=== PATIENT | female | born 1945 | race Caucasian/White ===

== ENCOUNTER 2023-03-01 21:46 | Observation (INO) | payer MEDICARE ==
[2023-03-01 22:00] LABS: Glucose,Whole Blood 219 mg/dL (70-110)
[2023-03-01] MEDS ORDERED: LABETALOL 5 MG/ML VIAL MDV IVP STA (22:32)
[2023-03-01 23:00] LABS: Basophils # (A) 0.1 k/uL (0-0.2); Basophils % (A) 1 %; Eosinophils # (A) 0.1 k/uL (0-0.7); Eosinophils % (A) 1 %; HCT 37.9 % (34.0-46.0); HGB 12.7 gm/dL (11.4-16.0); Lymphocytes # (A) 2.7 k/uL (1.0-4.8); Lymphocytes % (A) 24 %; MCH 29.6 pg (25.0-35.0); MCHC 33.6 g/dL (31.0-37.0); MCV 88.2 fL (80.0-100.0); Mean Platelet Volume 8.1; Monocytes # (A) 0.6 k/uL (0-1.0); Monocytes % (A) 5 %; Neutrophils # (A) 7.9 k/uL (1.3-7.7); Neutrophils % (A) 69 %; Platelet Count 236 k/uL (150-450); RBC 4.29 m/uL (3.80-5.40); WBC 11.5 k/uL (3.8-10.6)
[2023-03-01 23:03] LABS: ALT 23 U/L (4-34); AST 27 U/L (14-36); African American GFR (CKD) 43 (>60 ml/min/1.73 sqM); Albumin 4.1 g/dL (3.5-5.0); Alkaline Phosphatase 55 U/L (38-126); Anion Gap 9 mmol/L; Blood Urea Nitrogen 26 mg/dL (7-17); Calcium 9.1 mg/dL (8.4-10.2); Carbon Dioxide 23 mmol/L (22-30); Chloride 106 mmol/L (98-107); Glucose 225 mg/dL (74-99); Lipase 151 U/L (23-300); Magnesium 1.7 mg/dL (1.6-2.3); Non-African American GFR(CKD) 37 (>60 ml/min/1.73 sqM); Potassium 4.1 mmol/L (3.5-5.1); Sodium 138 mmol/L (137-145); Total Bilirubin 0.8 mg/dL (0.2-1.3); Total Protein 6.9 g/dL (6.3-8.2)
--- NOTE | 2023-03-01 23:45 | ED ---
General Adult HPI - General Chief complaint: Recheck/Abnormal Lab/Rx Stated complaint: Syncope Time Seen by Provider: 03/01/23 21:48 Source: EMS Mode of arrival: EMS - History of Present Illness Initial comments: This is a 77-year-old female with a past medical history including hypertension and hyperlipidemia presents emergency Department as a transfer patient from [place] emergency department. The patient earlier today suffered a syncopal episode and had a headache. The patient was seen in the emergency department and was found to have hypertension and the setting of syncope was transferred here for further evaluation by cardiology. On arrival, the patient stated that she had a continued headache and was hypertensive. The patient did not receive any blood pressure medication at the previous hospital. The patient was otherwise resting in bed comfortably without any acute distress. The patient denied any shortness of breath, chest pain as well as any lightheadedness or dizziness. - Related Data Home Medications Medication Instructions Recorded Confirmed Enalapril Maleate [Vasotec] 10 mg PO BID 04/12/15 04/15/15 Metoprolol Tartrate [Lopressor] 25 mg PO BID 04/12/15 04/15/15 Pravastatin Sodium [Pravachol] 20 mg PO HS 04/12/15 04/15/15 Ascorbic Acid [Vitamin C] 500 mg PO DAILY 03/01/23 03/01/23 Calcium Carbonate [Calcium] 600 mg PO DAILY 03/01/23 03/01/23 Cholecalciferol [Vitamin D3 (25 50 mcg PO DAILY 03/01/23 03/01/23 Mcg = 1000 Iu)] Ferrous Sulfate [Feosol] 325 mg PO DAILY 03/01/23 03/01/23 Furosemide [Lasix] 20 mg PO DAILY 03/01/23 03/01/23 Insulin NPH Hum/Reg Insulin Hm 15 units SQ AC-SUPPER 03/01/23 03/01/23 [Novolin 70-30 Flexpen] Insulin NPH Hum/Reg Insulin Hm 18 units SQ AC-BRKFST 03/01/23 03/01/23 [Novolin 70-30 Flexpen] Insulin NPH Hum/Reg Insulin Hm 23 units SQ AC-LUNCH@1200 03/01/23 03/01/23 [Novolin 70-30 Flexpen] Isosorbide Mononitrate ER [Imdur] 30 mg PO HS 03/01/23 03/01/23 Levothyroxine Sodium [Synthroid] 50 mcg PO DAILY 03/01/23 03/01/23 Previous Rx's Medication Instructions Recorded Nitroglycerin Sl Tabs [Nitrostat] 0.4 mg SUBLINGUAL Q5M PRN #25 tab 04/16/15 Allergies Allergy/AdvReac Type Severity Reaction Status Date / Time Penicillins Allergy Rash/Hives Verified 03/01/23 22:34 Review of Systems ROS Statement: Those systems with pertinent positive or pertinent negative responses have been documented in the HPI. ROS Other: All systems not noted in ROS Statement are negative. Past Medical History Past Medical History: Diabetes Mellitus, Hyperlipidemia, Hypertension Additional Past Medical History / Comment(s): see Dr Monterroso H&P History of Any Multi-Drug Resistant Organisms: None Reported Past Surgical History: Appendectomy, Bladder Surgery, Section, Cho lecystectomy, Heart Catheterization, Orthopedic Surgery Additional Past Surgical History / Comment(s): little finger left hand surgery, surgery on great toe left foot, Past Anesthesia/Blood Transfusion Reactions: Motion Sickness Past Psychological History: No Psychological Hx Reported Smoking Status: Never smoker Past Alcohol Use History: None Reported Past Drug Use History: None Reported - Past Family History Mother Family Medical History: Cancer General Exam Limitations: no limitations General appearance: alert, in no apparent distress Head exam: Present: atraumatic, normocephalic, normal inspection Eye exam: Present: normal appearance, PERRL Pupils: Present: normal accommodation ENT exam: Present: normal exam, normal oropharynx, mucous membranes moist Neck exam: Present: normal inspection, full ROM Respiratory exam: Present: normal lung sounds bilaterally. Absent: respiratory distress, wheezes Cardiovascular Exam: Present: regular rate, normal rhythm, normal heart sounds GI/Abdominal exam: Present: soft, normal bowel sounds Extremities exam: Present: normal inspection, full ROM Back exam: Present: normal inspection, full ROM Neurological exam: Present: alert, oriented X3, CN II-XII intact Psychiatric exam: Present: normal affect, normal mood Skin exam: Present: warm, dry Course Vital Signs 03/01/23 03/01/23 03/01/23 21:52 22:00 22:30 Temperature 98.0 F Pulse Rate 81 81 68 Respiratory 18 18 18 Rate Blood Pressure 211/85 233/80 202/80 O2 Sat by Pulse 97 97 98 Oximetry 03/01/23 03/01/23 23:00 23:30 Temperature Pulse Rate 67 70 Respiratory 18 18 Rate Blood Pressure 192/80 188/77 O2 Sat by Pulse 98 98 Oximetry Medical Decision Making - Medical Decision Making Was pt. sent in by a medical professional or institution (SIMÓN Horan, MENTAL RETARDATION NURSE, urgent care, hospital, or fpc...) When possible be specific @ -Yes, patient transferred from [place] emergency department. Did you speak to anyone other than the patient for history (EMS, parent, family, police, friend...)? What history was obtained from this source @ -No Did you review nursing and triage notes (agree or disagree)? Why? @ -I reviewed and agree with nursing and triage notes Were old charts reviewed (outside hosp., previous admission, EMS record, old EKG, old radiological studies, urgent care reports/EKG's, fpc records)? Report findings @ -Yes, the outside emergency department notes and [facility] reviewed Differential Diagnosis (chest pain, altered mental status, abdominal pain women, abdominal pain men, vaginal bleeding, weakness, fever, dyspnea, syncope, headache, dizziness, GI bleed, back pain, seizure, CVA, palpatations, mental health)? @ -Hypertensive urgency, hypertensive emergency, headache, NOS, syncope EKG interpreted by me (3pts min.). @ -EKG was performed at the outside facility X-rays interpreted by me (1pt min.). @ -None done CT interpreted by me (1pt min.). @ -None done U/S interpreted by me (1pt. min.). @ -None done What testing was considered but not performed or refused? (CT, X-rays, U/S, labs)? Why? @ -None What meds were considered but not given or refused? Why? @ -None Did you discuss the management of the patient with other professionals (professionals i.e. SIMÓN Horan, MENTAL RETARDATION NURSE, lab, RT, psych nurse, psychosocial rehabilitation counselor, ep technologist, teacher, electorate officer, case mgr)? Give summary @ -Yes, admitting physician was contacted regarding patient admission. Was smoking cessation discussed for >3mins.? @ -No Was critical care preformed (if so, how long)? @ -No Were there social determinants of health that impacted care today? How? (Homelessness, low income, unemployed, alcoholism, drug addiction, transportation, low edu. Level, literacy, decrease access to med. care, alf, rehab)? @ -No Was there de-escalation of care discussed even if they declined (Discuss DNR or withdrawal of care, Hospice)? DNR status @ -No What co-morbidities impacted this encounter? (DM, HTN, Smoking, COPD, CAD, Cancer, CVA, ARF, Chemo, Hep., AIDS, mental health diagnosis, sleep apnea, morbid obesity)? @ -Hypertension, hyperlipidemia Was patient admitted / discharged? Hospital course, mention meds given and route, prescriptions, significant lab abnormalities, going to OR and other pertinent info. @ -The patient was seen and evaluated emergency department. Physical exam, the patient was resting in bed without any acute distress. The signs admission were significant for significant hypertension. All laboratory workup and imaging was performed at outside facility however repeat laboratory workup for baseline testing was performed here. The patient received 10 mg of labetalol and did have decrease in her blood pressure. The patient's blood pressure decreased approximately 25% and the patient on reevaluation had improvement of her headache. Due to this, the patient was likely suffering from a hypertensive urgency in the setting of previous syncope. The patient will be placed in observation to be evaluated by cardiology. The patient was agreeable to this and all of her questions were answered. The patient was placed in observation in stable condition. Undiagnosed new problem with uncertain prognosis? @ -No Drug Therapy requiring intensive monitoring for toxicity (Heparin, Nitro, Insulin, Cardizem)? @ -No Were any procedures done? @ -No Diagnosis/symptom? @ -Hypertensive urgency, syncope Acute, or Chronic, or Acute on Chronic? @ -Acute Uncomplicated (without systemic symptoms) or Complicated (systemic symptoms)? @ -Complicated Side effects of treatment? @ -No Exacerbation, Progression, or Severe Exacerbation? @ -No Poses a threat to life or bodily function? How? (Chest pain, USA, OR, pneumonia, PE, COPD, DKA, ARF, appy, cholecystitis, CVA, Diverticulitis, Homicidal, Suicidal, threat to staff... and all critical care pts) @ -Yes, continued hypertension and syncopal episodes can lead to permanent damage and possible . - Lab Data Result diagrams: 03/01/23 21:57 03/01/23 21:57 Lab Results 03/01/23 03/01/23 03/01/23 Range/Units 21:57 21:57 21:57 WBC 11.5 H (3.8-10.6) k/uL RBC 4.29 (3.80-5.40) m/uL Hgb 12.7 (11.4-16.0) gm/dL Hct 37.9 (34.0-46.0) % MCV 88.2 (80.0-100.0) fL MCH 29.6 (25.0-35.0) pg MCHC 33.6 (31.0-37.0) g/dL RDW 13.0 (11.5-15.5) % Plt Count 236 (150-450) k/uL MPV 8.1 Neutrophils % 69 % Lymphocytes % 24 % Monocytes % 5 % Eosinophils % 1 % Basophils % 1 % Neutrophils # 7.9 H (1.3-7.7) k/uL Lymphocytes # 2.7 (1.0-4.8) k/uL Monocytes # 0.6 (0-1.0) k/uL Eosinophils # 0.1 (0-0.7) k/uL Basophils # 0.1 (0-0.2) k/uL Sodium 138 (137-145) mmol/L Potassium 4.1 (3.5-5.1) mmol/L Chloride 106 (98-107) mmol/L Carbon Dioxide 23 (22-30) mmol/L Anion Gap 9 mmol/L BUN 26 H (7-17) mg/dL Creatinine 1.39 H (0.52-1.04) mg/dL Est GFR (CKD-EPI)AfAm 43 (>60 ml/min/1.73 sqM) Est GFR (CKD-EPI)NonAf 37 (>60 ml/min/1.73 sqM) Glucose 225 H (74-99) mg/dL POC Glucose (mg/dL) (70-110) mg/dL POC Glu [place] Custodian ID Calcium 9.1 (8.4-10.2) mg/dL Magnesium 1.7 (1.6-2.3) mg/dL Total Bilirubin 0.8 (0.2-1.3) mg/dL AST 27 (14-36) U/L ALT 23 (4-34) U/L Alkaline Phosphatase 55 (38-126) U/L Troponin I <0.012 (0.000-0.034) ng/mL Total Protein 6.9 (6.3-8.2) g/dL Albumin 4.1 (3.5-5.0) g/dL Lipase 151 (23-300) U/L 03/01/23 Range/Units 21:59 WBC (3.8-10.6) k/uL RBC (3.80-5.40) m/uL Hgb (11.4-16.0) gm/dL Hct (34.0-46.0) % MCV (80.0-100.0) fL MCH (25.0-35.0) pg MCHC (31.0-37.0) g/dL RDW (11.5-15.5) % Plt Count (150-450) k/uL MPV Neutrophils % % Lymphocytes % % Monocytes % % Eosinophils % % Basophils % % Neutrophils # (1.3-7.7) k/uL Lymphocytes # (1.0-4.8) k/uL Monocytes # (0-1.0) k/uL Eosinophils # (0-0.7) k/uL Basophils # (0-0.2) k/uL Sodium (137-145) mmol/L Potassium (3.5-5.1) mmol/L Chloride (98-107) mmol/L Carbon Dioxide (22-30) mmol/L Anion Gap mmol/L BUN (7-17) mg/dL Creatinine (0.52-1.04) mg/dL Est GFR (CKD-EPI)AfAm (>60 ml/min/1.73 sqM) Est GFR (CKD-EPI)NonAf (>60 ml/min/1.73 sqM) Glucose (74-99) mg/dL POC Glucose (mg/dL) 219 H (70-110) mg/dL POC Glu [place] Custodian ID Cesar Diazle Calcium (8.4-10.2) mg/dL Magnesium (1.6-2.3) mg/dL Total Bilirubin (0.2-1.3) mg/dL AST (14-36) U/L ALT (4-34) U/L Alkaline Phosphatase (38-126) U/L Troponin I (0.000-0.034) ng/mL Total Protein (6.3-8.2) g/dL Albumin (3.5-5.0) g/dL Lipase (23-300) U/L Disposition Clinical Impression: Syncope, Hypertensive urgency Disposition: ADMITTED IP TO THIS HOSP Condition: Stable Is patient prescribed a controlled substance at d/c from ED?: No Referrals: Dimitri Garcia MD [Primary Care Provider] - 1-2 days Time of Disposition: 23:00 Decision to Admit Reason: Admit from EC Decision Date: 03/01/23 Decision Time: 23:00
[2023-03-01] MEDS ORDERED: NALOXONE 0.4 MG/ML 1 ML VIAL IV PRN (23:46)
[2023-03-02] MEDS ORDERED: LABETALOL 5 MG/ML VIAL MDV IVP STA (00:37)
[2023-03-02 01:33] LABS: Appearance,Urine Cloudy (Clear); Bacteria,Urine Occasional /hpf; Bilirubin,Urine Negative (Negative); Blood,Urine Negative (Negative); Color,Urine Light Yellow; Glucose,Urine (UA) 3+ (Negative); Ketones,Urine Negative (Negative); Leukocyte Esterase,Urine Moderate (Negative); Nitrite,Urine Positive (Negative); PH, Urine 6.5 (5.0-8.0); Protein,Urine Trace (Negative); RBC,Urine 1 /hpf (0-5); Specific Gravity,Urine 1.011 (1.001-1.035); Squamous Epithelial Cell,Urine <1 /hpf (0-4); Urobilinogen,Urine <2.0 mg/dL (<2.0); WBC,Urine 12 /hpf (0-5)
[2023-03-02] MEDS: lisinopriL 20 MG TAB PO SCH (08:58)
[2023-03-02] MEDS: amLODIPine 10 MG TAB PO SCH (08:58)
[2023-03-02] MEDS: FUROSEMIDE 20 MG TAB PO SCH (08:58)
--- NOTE | 2023-03-02 09:10 | P.CRDCN ---
History of Present Illness History of present illness: HISTORY OF PRESENT ILLNESS: This is a 77-year-old female with a past medical history significant for nonobstructive coronary artery disease, diabetes, hypertension, hyperlipidemia, and valvular heart disease. Patient follows in the office with Dr. Celestin. We have been asked to see the patient in consultation for syncope. Patient examined at the bedside. Patient states that she was working yesterday vacuuming and scrubbing floors. She states that she was on her knees scrubbing the floors when she began to feel unwell. She states she initially thought her blood sugar was low but she checked it and it was 93. She states that she then sat down and was eating some soup when she passed out. She does report having an episode of emesis as well. She reports having a headache. She was found to have uncontrolled blood pressures with systolics greater than 200s. She currently denies chest pain or pressure. She denies shortness of breath. * No EKG available for review at this time * Laboratory data: WBC 11.5. Hemoglobin 12.7. Platelet count 236. Sodium 138. Potassium 4.1. BUN. Creatinine 1.39. Troponin negative 1 * Current home cardiac medications include Lasix 20 mg daily, pravastatin 20 mg at night, metoprolol tartrate 12.5 mg daily, Imdur 30 mg at night, and enalapril 10 mg daily * Echo obtained in the office in May 2022 revealed normal EF and mild to moderate MR * Patient underwent cardiac catheterization and April 2015 revealing disease involving the RCA and circumflex. No stenting required. REVIEW OF SYSTEMS: At the time of my exam: CONSTITUTIONAL: Denies fever or chills. HEENT: Denies blurred vision, vision changes, or eye pain. Denies hemoptysis CARDIOVASCULAR: Denies chest pain. Denies orthopnea. Denies PND. Denies palpitations RESPIRATORY: Denies shortness of breath. GASTROINTESTINAL: Denies abdominal pain. Denies nausea or vomiting. HEMATOLOGIC: Denies bleeding disorders. GENITOURINARY: Denies any blood in urine. SKIN: Denies pruitis. Denies rash. PHYSICAL EXAM: VITAL SIGNS: Reviewed. GENERAL: Well-developed in no acute distress. HEENT: Head is normocephalic. Pupils are equal, round. Sclerae anicteric. Mucous membranes of the mouth are moist. Neck supple. No JVD or thyromegaly LUNGS: Respirations even and unlabored. Lungs essentially clear to auscultation bilaterally. HEART: Regular rate and rhythm. S1 and S2 heard. Systolic murmur noted ABDOMEN: Soft. Nondistended. Nontender. EXTREMITIES: Normal range of motion. No clubbing or cyanosis. Peripheral pulses intact. No lower extremity edema NEUROLOGIC: Awake and alert. Oriented x 3. ASSESSMENT: Syncope Hypertensive urgency Headache Nonobstructive coronary artery disease, for cardiac catheterization 2014 Hyperlipidemia Diabetes Valvular heart disease Chronic kidney disease PLAN: Obtain 2-D echo to assess cardiac structure and function Obtain 2 additional troponin levels Obtain EKG Resume home cardiac medications Discontinue metoprolol Add amlodipine 10 mg daily Continue to monitor blood pressure Continue telemetry monitoring to assess for any arrhythmias Further recommendations pending patient's course Nurse practitioner note has been reviewed by physician. Signing provider agrees with the documented findings, assessment, and plan of care. Past Medical History Past Medical History: Diabetes Mellitus, Hyperlipidemia, Hypertension Additional Past Medical History / Comment(s): see Dr Monterroso H&P History of Any Multi-Drug Resistant Organisms: None Reported Past Surgical History: Appendectomy, Bladder Surgery, Section, Cholecystectomy, Heart Catheterization, Orthopedic Surgery Additional Past Surgical History / Comment(s): little finger left hand surgery, surgery on great toe left foot, Past Anesthesia/Blood Transfusion Reactions: Motion Sickness Past Psychological History: No Psychological Hx Reported Smoking Status: Never smoker Past Alcohol Use History: None Reported Past Drug Use History: None Reported - Past Family History Mother Family Medical History: Cancer Medications and Allergies Home Medications Medication Instructions Recorded Confirmed Type Enalapril Maleate [Vasotec] 10 mg PO DAILY 04/12/15 03/01/23 History Metoprolol Tartrate [Lopressor] 12.5 mg PO DAILY 04/12/15 03/01/23 History Pravastatin Sodium [Pravachol] 20 mg PO HS 04/12/15 03/01/23 History Nitroglycerin Sl Tabs [Nitrostat] 0.4 mg SUBLINGUAL Q5M PRN #25 tab 04/16/15 03/01/23 Rx Ascorbic Acid [Vitamin C] 500 mg PO DAILY 03/01/23 03/01/23 History Calcium Carbonate [Calcium] 600 mg PO DAILY 03/01/23 03/01/23 History Cholecalciferol [Vitamin D3 (25 50 mcg PO DAILY 03/01/23 03/01/23 History Mcg = 1000 Iu)] Ferrous Sulfate [Feosol] 325 mg PO DAILY 03/01/23 03/01/23 History Furosemide [Lasix] 20 mg PO DAILY 03/01/23 03/01/23 History Insulin NPH Hum/Reg Insulin Hm 15 units SQ AC-SUPPER 03/01/23 03/01/23 History [Novolin 70-30 Flexpen] Insulin NPH Hum/Reg Insulin Hm 18 units SQ AC-BRKFST 03/01/23 03/01/23 History [Novolin 70-30 Flexpen] Insulin NPH Hum/Reg Insulin Hm 23 units SQ AC-LUNCH@1200 03/01/23 03/01/23 History [Novolin 70-30 Flexpen] Isosorbide Mononitrate ER [Imdur] 30 mg PO HS 03/01/23 03/01/23 History Levothyroxine Sodium [Synthroid] 50 mcg PO DAILY 03/01/23 03/01/23 History Allergies Allergy/AdvReac Type Severity Reaction Status Date / Time Penicillins Allergy Rash/Hives Verified 03/01/23 22:34 Physical Exam Vitals: Vital Signs Temp Pulse Resp BP Pulse Ox 03/02/23 08:59 77 18 188/88 96 03/02/23 07:47 179/78 03/02/23 06:00 69 18 179/72 95 03/02/23 05:00 98.0 F 72 18 177/73 95 03/02/23 04:00 71 18 163/71 97 03/02/23 03:00 61 18 140/61 98 03/02/23 02:00 67 18 148/66 96 03/02/23 01:36 70 18 175/75 97 03/02/23 01:00 67 18 183/80 98 03/02/23 00:00 72 18 202/80 98 03/01/23 23:30 70 18 188/77 98 03/01/23 23:00 67 18 192/80 98 03/01/23 22:30 68 18 202/80 98 03/01/23 22:00 81 18 233/80 97 03/01/23 21:52 98.0 F 81 18 211/85 97 Intake and Output 03/01/23 03/02/23 03/02/23 22:59 06:59 14:59 Other: Weight 58.06 kg Results 03/01/23 21:57 03/01/23 21:57 Cardiac Enzymes 03/01/23 03/01/23 Range/Units 21:57 21:57 AST 27 (14-36) U/L Troponin I <0.012 (0.000-0.034) ng/mL CBC 03/01/23 Range/Units 21:57 WBC 11.5 H (3.8-10.6) k/uL RBC 4.29 (3.80-5.40) m/uL Hgb 12.7 (11.4-16.0) gm/dL Hct 37.9 (34.0-46.0) % Plt Count 236 (150-450) k/uL Comprehensive Metabolic Panel 03/01/23 Range/Units 21:57 Sodium 138 (137-145) mmol/L Potassium 4.1 (3.5-5.1) mmol/L Chloride 106 (98-107) mmol/L Carbon Dioxide 23 (22-30) mmol/L BUN 26 H (7-17) mg/dL Creatinine 1.39 H (0.52-1.04) mg/dL Glucose 225 H (74-99) mg/dL Calcium 9.1 (8.4-10.2) mg/dL AST 27 (14-36) U/L ALT 23 (4-34) U/L Alkaline Phosphatase 55 (38-126) U/L Total Protein 6.9 (6.3-8.2) g/dL Albumin 4.1 (3.5-5.0) g/dL Current Medications Generic Name Dose Route Start Last Admin Trade Name Freq PRN Reason Stop Dose Admin Amlodipine Besylate 10 mg 03/02/23 09:00 03/02/23 08:58 Amlodipine 10 Mg Tab PO 10 mg DAILY MARCELL Administration Furosemide 20 mg 03/02/23 09:00 03/02/23 08:58 Furosemide 20 Mg Tab PO 20 mg DAILY MARCELL Administration Lisinopril 20 mg 03/02/23 09:00 03/02/23 08:58 Lisinopril 20 Mg Tab PO 20 mg DAILY MARCELL Administration Naloxone HCl 0.2 mg 03/01/23 23:46 Naloxone 0.4 Mg/Ml 1 Ml Vial IV Q2M PRN Opioid Reversal Pravastatin Sodium 20 mg 03/02/23 21:00 Pravastatin Sodium 20 Mg Tab PO HS MARCELL Intake and Output 03/01/23 03/02/23 03/02/23 22:59 06:59 14:59 Other: Weight 58.06 kg 03/01/23 21:57 03/01/23 21:57
[2023-03-02] MEDS ORDERED: NITROGLYCERIN SL TABS 0.4 MG TAB SUBLINGUAL PRN (16:23)
[2023-03-02] MEDS ORDERED: INSULN ASP PRT/INSULIN ASPART 100 UNIT/ML 10 ML VIAL SQ SCH (17:30)
[2023-03-02 17:39] LABS: Glucose,Whole Blood 358 mg/dL (70-110)
--- NOTE | 2023-03-02 17:41 | CA ---
Transthoracic Echo Report Name: Sandi Abdi Age: 77 Gender: F : 1945 Exam Date: 03/02/2023 13:40 Exam Location: [facility] Ht (in): 60 Wt (lb): 128 Ordering Physician: Yvette Candelaria Attending/Referring Phys: [id number], Bari Adapted Physical Education Specialist Be Guaman Procedure CPT: Indications: LV function, HTN Cardiac Hx: Technical Quality: Fair Contrast 1: Total Dose (mL): Contrast 2: Total Dose (mL): MEASUREMENTS (Male / Female) Normal Values 2D ECHO LV Diastolic Diameter PLAX 3.4 cm 4.2 - 5.9 / 3.9 - 5.3 cm LV Systolic Diameter PLAX 1.8 cm IVS Diastolic Thickness 0.8 cm 0.6 - 1.0 / 0.6 - 0.9 cm LVPW Diastolic Thickness 0.9 cm 0.6 - 1.0 / 0.6 - 0.9 cm LV Relative Wall Thickness 0.5 RV Internal Dim ED PLAX 2.8 cm LVOT Diameter 1.9 cm Aortic Root Diameter 2.6 cm LA Systolic Diameter LX 2.0 cm 3.0 - 4.0 / 2.7 - 3.8 cm LV Diastolic Volume MOD BP 27.4 cm??? 67 - 155 / 56 - 104 cm??? LV Systolic Volume MOD BP 7.7 cm??? 22 - 58 / 19 - 49 cm??? LV Ejection Fraction MOD BP 71.8 % >= 55 % LV Cardiac Index MOD BP 995.2 cm???/min???m??? LV Diastolic Volume MOD 4C 23.9 cm??? LV Systolic Volume MOD 4C 7.3 cm??? LV Ejection Fraction MOD 4C 69.3 % LV Cardiac Index MOD 4C 837.7 cm???/min???m??? LV Diastolic Length 4C 5.8 cm LV Systolic Length 4C 5.1 cm LV Diastolic Volume MOD 2C 30.8 cm??? LV Systolic Volume MOD 2C 8.0 cm??? LV Ejection Fraction MOD 2C 74.1 % LV Cardiac Index MOD 2C 1156.0 cm???/min???m??? LV Diastolic Length 2C 6.0 cm LV Systolic Length 2C 5.3 cm LA Volume 28.4 cm??? 18 - 58 / 22 - 52 cm??? Ascending Aorta Diameter 2.8 cm DOPPLER AV Peak Velocity 132.4 cm/s AV Peak Gradient 7.0 mmHg LVOT Peak Velocity 118.5 cm/s LVOT Peak Gradient 5.6 mmHg AV Area Cont Eq pk 2.5 cm??? MV Peak Velocity 147.4 cm/s MV Peak Gradient 8.7 mmHg MV Mean Velocity 63.2 cm/s MV Mean Gradient 2.1 mmHg MV Velocity Time Integral 34.0 cm MR Peak Velocity 288.4 cm/s MR Peak Gradient 33.3 mmHg Mitral E Point Velocity 74.0 cm/s Mitral A Point Velocity 124.7 cm/s Mitral E to A Ratio 0.6 MV Deceleration Time 356.6 ms MV E' Velocity 4.5 cm/s Mitral E to MV E' Ratio 16.3 PV Peak Velocity 105.1 cm/s PV Peak Gradient 4.4 mmHg FINDINGS Left Ventricle Normal LV size and wall thickness. Left ventricular ejection fraction is estimated at 60-65 %. Right Ventricle Normal right ventricular size. Right Atrium Normal right atrial size. Left Atrium Normal left atrial size. LA volume index= 18ml/m2 Mitral Valve Structurally normal mitral valve. No mitral regurgitation. Aortic Valve Mild AV calcification. No aortic valve stenosis or regurgitation. Tricuspid Valve Structurally normal tricuspid valve. Trace TR. Pulmonic Valve Pulmonic valve not well visualized. No pulmonic regurgitation. Pericardium Normal pericardium. Aorta Normal size aortic root and proximal ascending aorta. CONCLUSIONS Left ventricle has normal size wall motion systolic function Previewed by: Dr. Saud Guerrero MD (Electronically Signed) Final Date: 02 March 2023 17:40
[2023-03-02] MEDS: INSULIN ASPART (NovoLOG) 100 UNIT/ML VIAL SQ SCH ×2 (18:28→20:37)
--- NOTE | 2023-03-02 19:18 | P.HPIM ---
History of Present Illness H&P Date: 03/02/23 Chief Complaint: Syncope 77-year-old female with a past medical history including hypertension and hyperlipidemia presents emergency Department as a transfer patient from [facility] emergency department. The patient earlier today suffered a syncopal episode and had a headache. The patient was seen in the emergency department and was found to have hypertension and the setting of syncope was transferred here for further evaluation by cardiology. On arrival, the patient stated that she had a continued headache and was hypertensive. The patient did not receive any blood pressure medication at the previous hospital. The patient was otherwise resting in bed comfortably without any acute distress. The patient denied any shortness of breath, chest pain as well as any lightheadedness or dizziness. No EKG available for review at this time Laboratory data: WBC 11.5. Hemoglobin 12.7. Platelet count 236. Sodium 138. Potassium 4.1. BUN. Creatinine 1.39. Troponin negative 1 Current home cardiac medications include Lasix 20 mg daily, pravastatin 20 mg at night, metoprolol tartrate 12.5 mg daily, Imdur 30 mg at night, and enalapril 10 mg daily Echo obtained in the office in May 2022 revealed normal EF and mild to moderate MR Patient underwent cardiac catheterization and April 2015 revealing disease involving the RCA and circumflex. No stenting required. Review of Systems REVIEW OF SYSTEMS: CONSTITUTIONAL: No fever, no malaise, no fatigue. HEENT: No recent visual problems or hearing problems. Denied any sore throat. CARDIOVASCULAR: No chest pain, orthopnea, PND, no palpitations, no syncope. PULMONARY: No shortness of breath, no cough, no hemoptysis. GASTROINTESTINAL: No diarrhea, no nausea, no vomiting, no abdominal pain. NEUROLOGICAL: No headaches, no weakness, no numbness. HEMATOLOGICAL: Denies any bleeding or petechiae. GENITOURINARY: Denies any burning micturition, frequency, or urgency. MUSCULOSKELETAL/RHEUMATOLOGICAL: Denies any joint pain, swelling, or any muscle pain. ENDOCRINE: Denies any polyuria or polydipsia. The rest of the 14-point review of systems is negative. Past Medical History Past Medical History: Diabetes Mellitus, Hyperlipidemia, Hypertension Additional Past Medical History / Comment(s): see Dr Monterroso H&P History of Any Multi-Drug Resistant Organisms: None Reported Past Surgical History: Appendectomy, Bladder Surgery, Section, Cholecystectomy, Heart Catheterization, Orthopedic Surgery Additional Past Surgical History / Comment(s): little finger left hand surgery, surgery on great toe left foot, Past Anesthesia/Blood Transfusion Reactions: Motion Sickness Past Psychological History: No Psychological Hx Reported Smoking Status: Never smoker Past Alcohol Use History: None Reported Past Drug Use History: None Reported - Past Family History Mother Family Medical History: Cancer Medications and Allergies Home Medications Medication Instructions Recorded Confirmed Type Enalapril Maleate [Vasotec] 10 mg PO DAILY 04/12/15 03/01/23 History Pravastatin Sodium [Pravachol] 20 mg PO HS 04/12/15 03/01/23 History Nitroglycerin Sl Tabs [Nitrostat] 0.4 mg SUBLINGUAL Q5M PRN #25 tab 04/16/15 03/01/23 Rx Ascorbic Acid [Vitamin C] 500 mg PO DAILY 03/01/23 03/01/23 History Calcium Carbonate [Calcium] 600 mg PO DAILY 03/01/23 03/01/23 History Cholecalciferol [Vitamin D3 (25 50 mcg PO DAILY 03/01/23 03/01/23 History Mcg = 1000 Iu)] Ferrous Sulfate [Feosol] 325 mg PO DAILY 03/01/23 03/01/23 History Furosemide [Lasix] 20 mg PO DAILY 03/01/23 03/01/23 History Insulin NPH Hum/Reg Insulin Hm 15 units SQ AC-SUPPER 03/01/23 03/01/23 History [Novolin 70-30 Flexpen] Insulin NPH Hum/Reg Insulin Hm 18 units SQ AC-BRKFST 03/01/23 03/01/23 History [Novolin 70-30 Flexpen] Insulin NPH Hum/Reg Insulin Hm 23 units SQ AC-LUNCH@1200 03/01/23 03/01/23 History [Novolin 70-30 Flexpen] Isosorbide Mononitrate ER [Imdur] 30 mg PO HS 03/01/23 03/01/23 History Levothyroxine Sodium [Synthroid] 50 mcg PO DAILY 03/01/23 03/01/23 History Allergies Allergy/AdvReac Type Severity Reaction Status Date / Time Penicillins Allergy Rash/Hives Verified 03/01/23 22:34 Physical Exam Vitals: Vital Signs Temp Pulse Resp BP Pulse Ox 03/02/23 11:52 98.3 F 85 16 185/68 95 03/02/23 08:59 77 18 188/88 96 03/02/23 07:47 179/78 03/02/23 06:00 69 18 179/72 95 03/02/23 05:00 98.0 F 72 18 177/73 95 03/02/23 04:00 71 18 163/71 97 03/02/23 03:00 61 18 140/61 98 03/02/23 02:00 67 18 148/66 96 03/02/23 01:36 70 18 175/75 97 03/02/23 01:00 67 18 183/80 98 03/02/23 00:00 72 18 202/80 98 03/01/23 23:30 70 18 188/77 98 03/01/23 23:00 67 18 192/80 98 03/01/23 22:30 68 18 202/80 98 03/01/23 22:00 81 18 233/80 97 03/01/23 21:52 98.0 F 81 18 211/85 97 Intake and Output 03/01/23 03/02/23 03/02/23 22:59 06:59 14:59 Other: Weight 58.06 kg GENERAL: Well-developed in no acute distress. HEENT: Head is normocephalic. Pupils are equal, round. Sclerae anicteric. Mucous membranes of the mouth are moist. Neck supple. No JVD or thyromegaly LUNGS: Respirations even and unlabored. Lungs essentially clear to auscultation bilaterally. HEART: Regular rate and rhythm. S1 and S2 heard. Systolic murmur noted ABDOMEN: Soft. Nondistended. Nontender. EXTREMITIES: Normal range of motion. No clubbing or cyanosis. Peripheral pulses intact. No lower extremity edema NEUROLOGIC: Awake and alert. Oriented x 3. Results CBC & Chem 7: 03/01/23 21:57 03/01/23 21:57 Labs: Abnormal Lab Results - Last 24 Hours (Table) 03/01/23 03/01/23 03/01/23 Range/Units 21:57 21:57 21:59 WBC 11.5 H (3.8-10.6) k/uL Neutrophils # 7.9 H (1.3-7.7) k/uL BUN 26 H (7-17) mg/dL Creatinine 1.39 H (0.52-1.04) mg/dL Glucose 225 H (74-99) mg/dL POC Glucose (mg/dL) 219 H (70-110) mg/dL Urine Appearance (Clear) Urine Protein (Negative) Urine Glucose (UA) (Negative) Urine Nitrite (Negative) Ur Leukocyte Esterase (Negative) Urine WBC (0-5) /hpf Urine Bacteria (None) /hpf 03/02/23 Range/Units 01:07 WBC (3.8-10.6) k/uL Neutrophils # (1.3-7.7) k/uL BUN (7-17) mg/dL Creatinine (0.52-1.04) mg/dL Glucose (74-99) mg/dL POC Glucose (mg/dL) (70-110) mg/dL Urine Appearance Cloudy H (Clear) Urine Protein Trace H (Negative) Urine Glucose (UA) 3+ H (Negative) Urine Nitrite Positive H (Negative) Ur Leukocyte Esterase Moderate H (Negative) Urine WBC 12 H (0-5) /hpf Urine Bacteria Occasional H (None) /hpf Assessment and Plan Assessment: 1. Syncope - Patient has been admitted to telemetry; monitor cardiac enzymes and EKG; cardiology recommending continuously telemetry monitoring to assess for any arrh ythmias -2-D echo is ordered to assess Remy structure and function -- Nonobstructive coronary artery disease, for cardiac catheterization 2014 2. Hypertensive urgency; cardiology recommending to discontinue metoprolol; amlodipine is added 10 mg daily; monitor blood pressure closely; further adjus tment pending results; continue with home dose of lisinopril 20 mg daily; Imdur 30 mg daily at bedtime 3. Headache; likely related to uncontrolled hypertension 4. Hyperlipidemia; pravastatin 20 mg by mouth daily at bedtime 5. Diabetes mellitus for long-term insulin use; continue with home insulin schedule; monitor next 6 to CHF with insulin sliding scale 6. Hypothyroidism; levothyroxine 50 MCG daily 7. Chronic kidney disease; at baseline; we will monitor strict DIANA's, daily weights, renal function and lites; avoid nephrotoxins and hypotension DVT prophylaxis; SCDs CODE STATUS; full code
[2023-03-02 20:11] LABS: Glucose,Whole Blood 399 mg/dL (70-110)
[2023-03-02] MEDS ORDERED: ISOSORBIDE MONONITRATE ER 30 MG TAB.ER.24H PO SCH (21:00)
[2023-03-02] MEDS ORDERED: PRAVASTATIN SODIUM 20 MG TAB PO SCH (21:00)
[2023-03-03] MEDS ORDERED: LEVOTHYROXINE 50 MCG TAB PO SCH (06:30)
[2023-03-03 06:34] LABS: Glucose,Whole Blood 237 mg/dL (70-110)
[2023-03-03] MEDS ORDERED: INSULN ASP PRT/INSULIN ASPART 100 UNIT/ML 10 ML VIAL SQ SCH ×2 (07:30→12:00)
[2023-03-03] MEDS: lisinopriL 20 MG TAB PO SCH (08:27)
[2023-03-03] MEDS: amLODIPine 10 MG TAB PO SCH (08:27)
[2023-03-03] MEDS: FUROSEMIDE 20 MG TAB PO SCH (08:27)
[2023-03-03] MEDS: INSULIN ASPART (NovoLOG) 100 UNIT/ML VIAL SQ SCH ×2 (08:28→12:47)
[2023-03-03] MEDS ORDERED: ASCORBIC ACID 500 MG TAB PO SCH (09:00)
[2023-03-03] MEDS ORDERED: CHOLECALCIFEROL 25 MCG (1000 IU) TABLET PO SCH (09:00)
[2023-03-03] MEDS ORDERED: CALCIUM CARBONATE 500 MG CHEWABLE PO SCH (09:00)
[2023-03-03] MEDS ORDERED: FERROUS SULFATE 325 MG TAB PO SCH (09:00)
--- NOTE | 2023-03-03 10:13 | P.PN ---
Subjective Progress Note Date: 03/03/23 Principal diagnosis: HTN The patient is a pleasant 77-year-old female patient was admitted to the hospital was hypertension emergency. She underwent further cardiac testing including serial cardiac enzymes came in to be unremarkable an echo showed normal right ventricular dimension and systolic function. March 032022 The patient was seen and evaluated this morning that she is asymptomatic. The pressure has improved significantly on the current medical regimen. The echo showed normal LV systolic function was no significant valvular abnormalities. The cardiac enzymes came in to be unremarkable. The examination is unremarkable Assessment Hypertension emergency History of syncope Plan Continue the current medical regimen The patient potentially can be discharged in the next 24 hours Objective - Vital Signs Vital signs: Vital Signs Temp 97.8 F 03/03/23 07:00 Pulse 74 03/03/23 07:00 Resp 16 03/03/23 07:00 BP 130/64 03/03/23 07:00 Pulse Ox 94 L 03/03/23 07:00 FiO2 Intake & Output 03/02/23 03/03/23 03/03/23 18:59 06:59 18:59 Intake Total 540 120 Balance 540 120 Weight 58.06 kg Intake: Oral 540 120 Other: Voiding Method Toilet # Voids 1 1 - Labs CBC & Chem 7: 03/01/23 21:57 03/01/23 21:57 Labs: Abnormal Lab Results - Last 24 Hours (Table) 03/02/23 03/02/23 03/03/23 Range/Units 17:26 20:09 06:33 POC Glucose (mg/dL) 358 H 399 H 237 H (70-110) mg/dL
[2023-03-03 11:33] LABS: Glucose,Whole Blood 264 mg/dL (70-110)
[2023-03-03 14:11] VITALS: BP 132/64; PULSE 84; RESP 18; TEMP 97.9
== END 2023-03-03 17:02 | disposition home or self-care (01) ==
LOC: EC 21:46 → 6NMEDSUR 23:46
PROVIDERS: ADMIT Internal Medicine; ATTEND Internal Medicine
DX: I16.1 Hypertensive emergency (principal); E78.5 Hyperlipidemia, unspecified; I13.0 Hypertensive heart and chronic kidney disease with heart failure and stage 1 through stage 4 chronic kidney disease, or unspecified chronic kidney disease; E11.22 Type 2 diabetes mellitus with diabetic chronic kidney disease; N18.9 Chronic kidney disease, unspecified; I50.9 Heart failure, unspecified; I25.10 Atherosclerotic heart disease of native coronary artery without angina pectoris; E03.9 Hypothyroidism, unspecified; Z79.899 Other long term (current) drug therapy; Z79.4 Long term (current) use of insulin; Z79.890 Hormone replacement therapy; Z88.0 Allergy status to penicillin; Z90.49 Acquired absence of other specified parts of digestive tract; Z80.9 Family history of malignant neoplasm, unspecified
CPT/HCPCS: 96376; 96374; 99285; 36415; 93005; 93306; 80053; 83690; 83735; 84484 ×2; 85025; 81001; G0378 ×2; J1920 ×2